=== PATIENT | female | born 2000 | race Two or more races ===

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

== ENCOUNTER 2022-05-06 12:42 | Emergency (ER) | payer OTHER ==
[~2022-05-06] VITALS: Ht 162.6 cm; Wt 56.7 kg
[~2022-05-06 12:42] MED LIST changes: +TUSICOF CAPLET1 EACH PO
[2022-05-06] MEDS ORDERED: MIRALAX17 GM PO (13:50)
== END 2022-05-06 14:00 | disposition home or self-care (01) ==
LOC: ER 12:42 → EMR PED 12:44 → ER 12:44 → EMR PED 14:00
DX: K59.00 Constipation, unspecified (principal)

== ENCOUNTER 2022-07-16 13:33 | Emergency (ER) | payer OTHER ==
[~2022-07-16] VITALS: Ht 162.6 cm; Wt 54.4 kg
[~2022-07-16 13:33] MED LIST changes: +MIRALAX17 GM PO
== END 2022-07-16 22:52 | disposition home or self-care (01) ==
LOC: EMR PED 13:33
DX: R53.81 Other malaise (principal); R11.10 Vomiting, unspecified; R50.9 Fever, unspecified; E86.0 Dehydration; Z20.822 Contact with and (suspected) exposure to COVID-19

== ENCOUNTER 2024-08-10 15:07 | Outpatient (CLI) | payer OTHER | END 2024-08-10 15:08 | disposition home or self-care (01) | LOC: PRENATAL 15:07 | PROVIDERS: ATTEND Obstetrics & Gynecology Maternal & Fetal Medicine | DX: O26.849 Uterine size-date discrepancy, unspecified trimester (principal); Z36.0 Encounter for antenatal screening for chromosomal anomalies; Z14.8 Genetic carrier of other disease; Z3A.15 15 weeks gestation of pregnancy ==

== ENCOUNTER → 2024-09-13 07:53 | Outpatient (CLI) | payer OTHER | END | disposition home or self-care (01) | LOC: PRENATAL 07:53 | PROVIDERS: ATTEND Obstetrics & Gynecology Maternal & Fetal Medicine | DX: O44.00 Complete placenta previa NOS or without hemorrhage, unspecified trimester (principal); Z3A.20 20 weeks gestation of pregnancy ==

== ENCOUNTER 2024-11-26 21:15 | Emergency (ER) | payer OTHER ==
[~2024-11-26] VITALS: Ht 162.6 cm; Wt 67.1 kg
[2024-11-26] MEDS ORDERED: PRENATAL + DHA1 EAC1 PO (21:33)
[2024-11-26] MEDS ORDERED: ONDANSETRON HCL 2 MG/ML VIAL IV ONE (22:30)
[2024-11-26 23:17] LABS: BASO % 0.1 % (0.1-1.2); EOS # 0.06 (0.04-0.54); EOS % 0.8 % (0.7-7.0); LYMPH # 0.66 (1.18-3.74); LYMPH % 9.3 % (19.3-53.1); MEAN PLATELET VOLUME 11.20 fl (9.4-12.4); MONO # 0.91 (0.24-0.82); MONO % 12.9 % (4.7-12.5); NEUT # 5.37 (1.56-6.13); NEUT % 76.1 % (34.0-71.1); RED CELL DISTRIBUTION WIDTH 13.4 % (11.6-14.4)
[2024-11-26 23:28] LABS: COVID-19 AG POSITIVE (NEGATIVE)
[2024-11-26] MEDS ORDERED: TUSNEL LIQUID178 ML PO (23:44)
[2024-11-26] MEDS ORDERED: ONDANSETRON ODT8 MG PO (23:44)
== END 2024-11-26 23:49 | disposition home or self-care (01) ==
LOC: ER 21:15
PROVIDERS: General Practice
DX: O98.513 Other viral diseases complicating pregnancy, third trimester (principal); U07.1 COVID-19; Z3A.30 30 weeks gestation of pregnancy; R11.2 Nausea with vomiting, unspecified

== ENCOUNTER 2024-12-06 09:28 | Outpatient (CLI) | payer OTHER ==
[~2024-12-06 09:28] MED LIST changes: +ONDANSETRON ODT8 MG PO; +PRENATAL + DHA1 EAC1 PO; +TUSNEL LIQUID178 ML PO
== END 2024-12-06 09:32 | disposition home or self-care (01) ==
LOC: PRENATAL 09:28
PROVIDERS: ATTEND Obstetrics & Gynecology Maternal & Fetal Medicine
DX: O26.849 Uterine size-date discrepancy, unspecified trimester (principal); O36.8199 Decreased fetal movements, unspecified trimester, other fetus; O60.00 Preterm labor without delivery, unspecified trimester; O26.899 Other specified pregnancy related conditions, unspecified trimester; Z3A.33 33 weeks gestation of pregnancy

== ENCOUNTER 2025-01-21 13:15 | Inpatient (IN) | payer OTHER ==
[~2025-01-21] VITALS: Ht 162.6 cm; Wt 71.7 kg
[2025-01-25 08:48] VITALS: BP 125/65
[2025-01-25] MEDS ORDERED: OXYTOCIN 500 ML IV SCH (09:30)
[2025-01-25] MEDS ORDERED: MORPHINE SULFATE 4 MG/ML CARTRIDGE IV ONE ×2 (09:30→17:00)
[2025-01-25 09:48] LABS: BASO % 0.2 % (0.1-1.2); EOS # 0.04 (0.04-0.54); EOS % 0.7 % (0.7-7.0); LYMPH # 1.28 (1.18-3.74); LYMPH % 21.3 % (19.3-53.1); MEAN PLATELET VOLUME 11.30 fl (9.4-12.4); MONO # 0.64 (0.24-0.82); MONO % 10.6 % (4.7-12.5); NEUT # 3.99 (1.56-6.13); NEUT % 66.4 % (34.0-71.1); RED CELL DISTRIBUTION WIDTH 14.4 % (11.6-14.4)
[2025-01-25 09:52] LABS: URINE APPEARANCE Cloudy; URINE BILIRRUBIN Negative (NEGATIVE); URINE BLOOD Negative; URINE COLOR Yellow; URINE GLUCOSE Negative (NEGATIVE); URINE KETONE Negative (NEGATIVE); URINE LEUKOCYTE Large; URINE NITRATE Negative; URINE PROTEIN Negative (NEGATIVE); URINE UROBILINOGEN 1.0 E.U./dl
[2025-01-25 09:53] LABS: URINE BACTERIA 3958.8 uL (0.0-1933); URINE EPITHELIAL CELLS 76.1 uL (0.0-38.8); URINE WBC 249.3 uL (0.0-23.2)
[2025-01-25 10:10] LABS: INR 0.94
[2025-01-25 10:35] LABS: URINE CAST 0.29 uL (0.0-1.40); URINE RBC 0.4 uL (0.0-20.8)
[2025-01-25 10:36] LABS: URINE CRYSTALS FEW /HPF
[2025-01-25 11:56] VITALS: BP 128/68
[2025-01-25 13:37] VITALS: BP 131/71
[2025-01-25 15:21] VITALS: BP 119/55
[2025-01-25 17:17] VITALS: BP 147/59
[2025-01-25] MEDS ORDERED: OXYTOCIN 20 UNITS/1000ML RL PIGGYBAG IV ONE ×2 (18:40→20:34)
[2025-01-25] MEDS ORDERED: ERYTHROMYCIN BASE OPHT 1GM EACH TUBE OP ONE (18:40)
[2025-01-25] MEDS ORDERED: CHLORHEXIDINE GLUCONATE 120 ML BOTTLE TOP ONE (18:41)
[2025-01-25] MEDS ORDERED: LIDOCAINE HCL 1% 10ML VIAL ONE (18:41)
[2025-01-25 22:21] VITALS: BP 120/69
[2025-01-26] VITALS: BP 97/57
[2025-01-26 06:30] LABS: BASO % 0.2 % (0.1-1.2); EOS # 0.02 (0.04-0.54); EOS % 0.2 % (0.7-7.0); LYMPH # 1.46 (1.18-3.74); LYMPH % 11.4 % (19.3-53.1); MEAN PLATELET VOLUME 11.70 fl (9.4-12.4); MONO # 1.40 (0.24-0.82); MONO % 10.9 % (4.7-12.5); NEUT # 9.87 (1.56-6.13); NEUT % 77.0 % (34.0-71.1); RED CELL DISTRIBUTION WIDTH 14.3 % (11.6-14.4)
[2025-01-26 08:00] VITALS: BP 111/70
[2025-01-26] MEDS ORDERED: PNV,CALCIUM 72/IRON/FOLIC ACID 1 TAB TABLET PO SCH (09:00)
[2025-01-26 16:00] VITALS: BP 107/69
[2025-01-27 00:45] VITALS: BP 126/80
[2025-01-27 08:57] VITALS: BP 95/60
== END 2025-01-27 12:33 | disposition home or self-care (01) | DRG 807 ==
LOC: OB/GYN 01-25 08:35 → LDR 01-25 08:35 → OB/GYN 01-25 20:03
PROVIDERS: ADMIT Obstetrics & Gynecology; ATTEND Obstetrics & Gynecology
PROC: 10E0XZZ Delivery of Products of Conception, External Approach (ICD-10-PCS; principal; 2025-01-25)
PROC: 0KQM0ZZ Repair Perineum Muscle, Open Approach (ICD-10-PCS; 2025-01-25)
PROC: 4A1HXCZ Monitoring of Products of Conception, Cardiac Rate, External Approach (ICD-10-PCS; 2025-01-25)
DX: O70.1 Second degree perineal laceration during delivery (principal); Z37.0 Single live birth; Z3A.39 39 weeks gestation of pregnancy